=== PATIENT | female | born 1975 | race American Indian/Alaskan Native ===

== ENCOUNTER 2017-12-30 09:35 | Emergency (ER) | payer BC ==
[2017-12-30] MEDS ORDERED: MOTRIN PO ONE (10:04)
--- NOTE | 2017-12-30 10:06 | Emergency Department Report ---
Blank Doc - Documentation Documentation: This is a 42-year-old black female who presented with several complaints. Patient states for the last 2 days she has been having some right sided sharp chest discomfort. Patient states that hurts when she laughs when she breathes and also when she moves. Patient denies any cough or congestion. Patient also states that she has been having morning leg cramps. Patient has a history of DVT and this was also wrote for approximately 8 months was taken off. Lastly the patient is complaining of dysuria. Patient has a pressure-like sensation in the suprapubic region and pain at the end of her urinary stream. Patient denies any abnormal bleeding or discharge. Patient will have a d-dimer ordered as well as a chest x-ray. EKG is reviewed by me is within normal limits. Patient also has basic labs ordered as well as ultrasound of her bilateral legs.
--- NOTE | 2017-12-30 10:29 | Emergency Department Report ---
ED Chest Pain HPI - General Chief Complaint: Chest Pain Stated Complaint: CHEST PAIN/ADB PAIN Time Seen by Provider: 12/30/17 09:56 Source: patient Mode of arrival: Ambulatory Limitations: No Limitations - History of Present Illness Initial Comments: This is a 42-year-old black female who presented with several complaints. Patient states for the last 2 days she has been having some right sided sharp chest discomfort. Patient states that hurts when she laughs when she breathes and also when she moves. Patient denies any cough or congestion. Patient also states that she has been having leg cramps. Patient has a history of DVT and this was also wrote for approximately 8 months was taken off. Lastly the patient is complaining of dysuria. Patient has a pressure-like sensation in the suprapubic region and pain at the end of her urinary stream. Patient denies any abnormal bleeding or discharge. Pain 9 and 10 and crampy legs. Suprapubic pressure right chest pain that sharp. All pain is 8 out of 10. Chest pain worse with eating, laughing and walking. Better with rest. Leg pain on walk-in better with rest and pelvic pressure is intermittent and she reports burning pain and pelvic pressure on urination. She took over-the- counter pain medication but it did not help her patient. Denies any back pain. Denies any nausea vomiting or diarrhea. Denies any vaginal bleeding or discharge. MD Complaint: chest pain, other (multiple other complaints) Onset/Timin -: days(s) Onset: during exertion Pain Location: right chest Pain Radiation: none Severity: severe Severity scale (0 -10): 8 Quality: sharp, pressure, other (cramping.) Consistency: intermittent Improves With: rest Worsens With: exertion Context: other (none) re: denies: nausea, vomting, diaphoresis, dyspnea, sense of impending doom Other Symptoms: denies: cough, fever, syncope, rash, acid taste in mouth, leg swelling, palpitations, burping Treatments Prior to Arrival: none Aspirin use within the Past 7 Days: (0) No - Related Data On Oral Contraceptives: No Previous Rx's Medication Instructions Recorded Last Taken Type Naproxen 500 mg PO Q12H 5 Days #10 tablet 12/30/17 Unknown Rx Ondansetron [Zofran Odt] 4 mg PO Q6H PRN #20 tab.rapdis 12/30/17 Unknown Rx Sulfamethoxazole/Trimethoprim 1 each PO BID 7 Days #14 tablet 12/30/17 Unknown Rx [Bactrim DS TAB] Allergies Allergy/AdvReac Type Severity Reaction Status Date / Time acetaminophen [From Vicodin] Allergy Hives Verified 12/30/17 09:43 hydrocodone [From Vicodin] Allergy Hives Verified 12/30/17 09:43 Penicillins Allergy Hives Verified 12/30/17 09:43 Heart Score - HEART Score History: Slightly suspicious EKG: Normal Age: < 45 Risk factors: 1-2 risk factors Troponin: < normal limit HEART Score: 1 - Critical Actions Critical Actions: 0-3 pts:0.9-1.7%risk of adverse cardiac event.Candidate for discharge ED Review of Systems ROS: Stated complaint: CHEST PAIN/ADB PAIN Other details as noted in HPI Constitutional: denies: chills, fever Eyes: denies: eye pain, eye discharge, vision change ENT: denies: ear pain, throat pain, congestion Respiratory: denies: cough, shortness of breath, SOB with exertion, SOB at rest , wheezing Cardiovascular: chest pain. denies: palpitations, dyspnea on exertion, orthopnea, edema, syncope, paroxysmal nocturnal dyspnea Gastrointestinal: abdominal pain. denies: nausea, vomiting, diarrhea, constipation, melena, hematochezia Genitourinary: dysuria. denies: urgency, frequency, hematuria, discharge Musculoskeletal: denies: back pain, joint swelling, arthralgia, myalgia Skin: denies: rash, lesions Neurological: denies: headache, weakness, numbness, paresthesias, confusion, abnormal gait, vertigo ED Past Medical Hx - Past Medical History Previous Medical History?: Yes Hx Hypertension: Yes - Surgical History Past Surgical History?: Yes Additional Surgical History: Hyst, bladder, ectopic - Family History Family history: hypertension - Social History Smoking Status: Never Smoker Substance Use Type: Alcohol - Medications Home Medications: Home Medications Medication Instructions Recorded Confirmed Last Taken Type Naproxen 500 mg PO Q12H 5 Days #10 tablet 12/30/17 Unknown Rx Ondansetron [Zofran Odt] 4 mg PO Q6H PRN #20 tab.rapdis 12/30/17 Unknown Rx Sulfamethoxazole/Trimethoprim 1 each PO BID 7 Days #14 tablet 12/30/17 Unknown Rx [Bactrim DS TAB] ED Physical Exam - General Limitations: No Limitations General appearance: alert, in no apparent distress - Head Head exam: Present: atraumatic, normocephalic, normal inspection - Eye Eye exam: Present: normal appearance, PERRL, EOMI Pupils: Present: normal accommodation - ENT ENT exam: Present: normal exam, normal orophraynx, mucous membranes moist, TM's normal bilaterally, normal external ear exam - Neck Neck exam: Present: normal inspection, full ROM. Absent: tenderness, lymphadenopathy - Respiratory Respiratory exam: Present: normal lung sounds bilaterally, chest wall tenderness (right). Absent: respiratory distress, wheezes, rales, rhonchi, stridor, accessory muscle use, decreased breath sounds, prolonged expiratory - Cardiovascular Cardiovascular Exam: Present: regular rate, normal rhythm, normal heart sounds. Absent: systolic murmur, diastolic murmur - GI/Abdominal GI/Abdominal exam: Present: soft, normal bowel sounds. Absent: distended, tenderness, guarding, rebound, rigid, organomegaly, mass - Extremities Exam Extremities exam: Present: normal inspection, full ROM, normal capillary refill , other (No cce. + 2 pulses in all extremities, no neurovascular compromise. Negative Homans sign). Absent: tenderness, pedal edema, joint swelling, calf tenderness - Back Exam Back exam: Present: normal inspection, full ROM, other (ambulates without any difficulties). Absent: tenderness, CVA tenderness (R), CVA tenderness (L), muscle spasm, paraspinal tenderness, vertebral tenderness, rash noted - Neurological Exam Neurological exam: Present: alert, oriented X3, normal gait, reflexes normal. Absent: motor sensory deficit - Psychiatric Psychiatric exam: Present: normal affect, normal mood - Skin Skin exam: Present: warm, dry, intact, normal color. Absent: rash ED Course Vital Signs 12/30/17 12/30/17 12/30/17 09:43 10:15 10:49 Temperature 98.4 F Pulse Rate 77 Respiratory 20 18 18 Rate Blood Pressure 131/80 Blood Pressure [Left] O2 Sat by Pulse 100 Oximetry 12/30/17 12/30/17 12/30/17 14:17 16:37 18:04 Temperature 98 F 98 F Pulse Rate 56 L 56 L Respiratory 18 17 17 Rate Blood Pressure Blood Pressure 117/66 117/66 [Left] O2 Sat by Pulse 98 98 Oximetry - Reevaluation(s) Reevaluation #1: 12/30/17 12:10 Patient received ibuprofen which helped her pain. This is ordered by Dr. Lorenza León. Pain is better. She is in no distress. Reevaluation #2: 12/30/17 15:11 Patient stable and in no acute distress received Toradol 30 mg IV for pain after returning from ultrasound and she received Pepcid 20 mg IV. She is stable and in no acute distress. Reevaluation #3: 12/30/17 17:18 Patient did not drink in orally without any distress. Her pain has resolved. She says she is feeling better. She was given results of her diagnostic and laboratory studies and she has a primary care physician that she says she will call to schedule an appointment with. I also informed her that I will refer her to seafood specialist for abdominal pain and to cardiology for atypical chest pain and she is in agreement. HECTOR score - Hector Score Age > 65: (0) No Aspirin use within the Past 7 Days: (0) No 3 or more CAD Risk Factors: (0) No 2 or more Angina events in past 24 hrs: (0) No Known CAD with more than 50% Stenosis: (0) No Elevated Cardiac Markers: (0) No ST Deviation Greater than 0.5mm: (0) No HECTOR Score: 0 ED Medical Decision Making - Lab Data Result diagrams: 12/30/17 10:09 12/30/17 10:09 Lab Results 12/30/17 12/30/17 12/30/17 Range/Units 10: 10:09 10:09 WBC 5.4 (4.5-11.0) K/mm3 RBC 4.95 (3.65-5.03) M/mm3 Hgb 13.9 (10.1-14.3) gm/dl Hct 41.1 (30.3-42.9) % MCV 83 (79-97) fl MCH 28 (28-32) pg MCHC 34 (30-34) % RDW 14.6 (13.2-15.2) % Plt Count 243 (140-440) K/mm3 Lymph % (Auto) 41.2 H (13.4-35.0) % [place] % (Auto) 7.3 (0.0-7.3) % Eos % (Auto) 2.2 (0.0-4.3) % Baso % (Auto) 1.3 (0.0-1.8) % Lymph # 2.2 (1.2-5.4) K/mm3 [place] # 0.4 (0.0-0.8) K/mm3 Eos # 0.1 (0.0-0.4) K/mm3 Baso # 0.1 (0.0-0.1) K/mm3 Seg Neutrophils % 48.0 (40.0-70.0) % Seg Neutrophils # 2.6 (1.8-7.7) K/mm3 D-Dimer 344.09 H (0-234) ng/mlDDU Sodium 140 (137-145) mmol/L Potassium 4.1 (3.6-5.0) mmol/L Chloride 102.1 (98-107) mmol/L Carbon Dioxide 25 (22-30) mmol/L Anion Gap 17 mmol/L BUN 9 (7-17) mg/dL Creatinine 0.7 (0.7-1.2) mg/dL Estimated GFR > 60 ml/min BUN/Creatinine Ratio 13 % Glucose 101 H (65-100) mg/dL Calcium 9.6 (8.4-10.2) mg/dL HCG, Qual (Negative) Urine Color (Yellow) Urine Turbidity (Clear) Urine pH (5.0-7.0) Ur Specific [place] (1.003-1.030) Urine Protein (Negative) mg/dL Urine Glucose (UA) (Negative) mg/dL Urine Ketones (Negative) mg/dL Urine Blood (Negative) Urine Nitrite (Negative) Urine Bilirubin (Negative) Urine Urobilinogen (<2.0) mg/dL Ur Leukocyte Esterase (Negative) Urine WBC (Auto) (0.0-6.0) /HPF Urine RBC (Auto) (0.0-6.0) /HPF U Epithel Cells (Auto) (0-13.0) /HPF Urine Mucus /HPF 12/30/17 12/30/17 Range/Units 10:09 Unknown WBC (4.5-11.0) K/mm3 RBC (3.65-5.03) M/mm3 Hgb (10.1-14.3) gm/dl Hct (30.3-42.9) % MCV (79-97) fl MCH (28-32) pg MCHC (30-34) % RDW (13.2-15.2) % Plt Count (140-440) K/mm3 Lymph % (Auto) (13.4-35.0) % [place] % (Auto) (0.0-7.3) % Eos % (Auto) (0.0-4.3) % Baso % (Auto) (0.0-1.8) % Lymph # (1.2-5.4) K/mm3 [place] # (0.0-0.8) K/mm3 Eos # (0.0-0.4) K/mm3 Baso # (0.0-0.1) K/mm3 Seg Neutrophils % (40.0-70.0) % Seg Neutrophils # (1.8-7.7) K/mm3 D-Dimer (0-234) ng/mlDDU Sodium (137-145) mmol/L Potassium (3.6-5.0) mmol/L Chloride (98-107) mmol/L Carbon Dioxide (22-30) mmol/L Anion Gap mmol/L BUN (7-17) mg/dL Creatinine (0.7-1.2) mg/dL Estimated GFR ml/min BUN/Creatinine Ratio % Glucose (65-100) mg/dL Calcium (8.4-10.2) mg/dL HCG, Qual Negative (Negative) Urine Color Yellow (Yellow) Urine Turbidity Cloudy (Clear) Urine pH 6.0 (5.0-7.0) Ur Specific [place] 1.023 (1.003-1.030) Urine Protein <15 mg/dl (Negative) mg/dL Urine Glucose (UA) Neg (Negative) mg/dL Urine Ketones Neg (Negative) mg/dL Urine Blood Neg (Negative) Urine Nitrite Neg (Negative) Urine Bilirubin Neg (Negative) Urine Urobilinogen < 2.0 (<2.0) mg/dL Ur Leukocyte Esterase Neg (Negative) Urine WBC (Auto) 1.0 (0.0-6.0) /HPF Urine RBC (Auto) 2.0 (0.0-6.0) /HPF U Epithel Cells (Auto) 32.0 H (0-13.0) /HPF Urine Mucus 3+ /HPF - EKG Data -: EKG Interpreted by [place] EKG shows normal: sinus rhythm Rate: normal - EKG Data Interpretation: no acute changes, normal EKG (60 bpm) - Radiology Data Radiology results: report reviewed Chest x-ray and CT chest dictated by radiologist report reviewed by myself. See detailed report below Bilateral lower extremity DVT negative for DVT or SVT. This is a preliminary report and final reports to be sent over by radiologist. TON CANAS Female : 1975 [facility]# [id number] 12/30/17 11:06 - Radiology Dept. Note by MOHIT BLISS Acct Num: [id number] : 1975 Patient Age: 42 VASCULAR LAB.PRELIMINARY REPORT. BLE VENOUS DUPLEX DONE. NO EVIDENCE OF DVT/SVT IN VESSELS VISUALIZED. Initialized on 12/30/17 11:06 - END OF NOTE CTA chest dictated by radiologist report reviewed by myself see report below. Patient: TON CANAS MR#: [id number] : 1975 Acct:[id number] Age/Sex: 42 / F ADM Date: 12/30/17 Loc: ED Attending Dr: Ordering Physician: ELIS LEÓN MD Date of Service: 12/30/17 Procedure(s): CT angio chest Accession Number(s): [id number] cc: ELIS LEÓN MD FINAL REPORT EXAM: CT ANGIO CHEST HISTORY: CP elevated ddimer COMPARISON: None. TECHNIQUE: Multiple contiguous images were obtained through administration of IV contrast. Reformatted sagittal and coronal images were available for review. Maximal intensity projection 3D images were provided for review. FINDINGS: Medical devices: None. Thyroid: Normal. Lymph nodes: No significant mediastinal, hilar, or axillary lymphadenopathy. Vasculature: Normal caliber of the pulmonary artery. No filling defect within the main pulmonary artery and its branches to suggest pulmonary embolism. Normal caliber of the thoracic aorta with a normal variant branching pattern of the aortic arch with a common origin between the right brachiocephalic and left common carotid artery. Heart: Normal heart size. Other mediastinal structures: Normal. Lung parenchyma: Lungs are clear. No suspicious nodule or mass. No focal consolidation. Airways: Patent. No bronchiectasis. Pleura: No pleural effusion or pneumothorax. Chest wall and spine: No suspicious osseous lesions. No acute fracture or dislocation. Upper Abdomen: Normal. IMPRESSION: No evidence of pulmonary embolism. No acute intrathoracic pathology. Transcribed By: RASHEEDA Dictated By: SANIA WEBB MD Electronically Authenticated By: SANIA WEBB MD Signed Date/Time: 12/30/171614 DD/ 14 TD/TT: 12/30/171614 Chest x-ray 2 view dictated per radiologist report reviewed by myself. Please see details below. Patient: TON CANAS MR#: [id number] : 1975 Acct:[id number] Age/Sex: 42 / F ADM Date: 12/30/17 Loc: ED Attending Dr: Ordering Physician: ELIS LEÓN MD Date of Service: 12/30/17 Procedure(s): XR chest routine 2V Accession Number(s): [id number] cc: ELIS LEÓN MD Fluoro Time In Minutes: ROUTINE CHEST, TWO VIEWS: HISTORY: Chest pain. This examination is just presented to me for interpretation. The trachea, heart, mediastinal contour, lung long and bony thorax are unremarkable. IMPRESSION: Unremarkable chest x-ray. Transcribed By: TTR Dictated By: JEANETTE JONES JR, MD Electronically Authenticated By: JEANETTE JONES JR, MD Signed Date/Time: 12/30/171522 DD/ 1523 TD/TT: 12/30/171522 - Medical Decision Making This is a 42-year-old patient here complaining of multiple issues. She is complaining of right-sided chest pain for 2 days and history of DVT. Worse with movement and laughing. She is also complaining of dysuria and suprapubic pressure. She is also complaining of leg cramps. Diagnostics: Chest x-ray dictated by radiologist and no acute cardiopulmonary findings. CT and she will shows a PE or acute cardiopulmonary processes. Bilateral lower extremity Doppler ultrasound shows no evidence of DVT or SVT. Laboratory: CBC and BMP stable, test negative, urinalysis negative for infection, d-dimer mildly elevated. EKG: Sinus rhythm at 60 bpm Assessment/plan 1: Atypical chest pain suspect costochondritis-chest x-ray and CT chest negative findings. She given Motrin 800 mg pain and then Toradol 30 mg IV for pain. Pain has resolved. EKG normal. Patient has score is at 1 so we will refer to outpatient cardiology and her HECTOR score 0. She is a low risk for ACS. 2: Bilateral lower extremity pain-8 is better after pain medication 3: Abdominal pain-Pepcid 20 mg IV. Pain has been resolved. Will sent home on naproxen 4: Interstitial cystitis- with dysuria-will sent home on Bactrim Patient educated on laboratory, EKG, ultrasound of lower extremity and chest x- ray along with CTA the chest. She voiced understanding. I educated her and her diagnosis, medication and treatment plan along with referral to specialists and she voiced understanding. Surgical stable condition and referred to warp drawer, IR[facility], primary care physician and seafood specialist for management of multiple medical problems. She understands that she needs to follow up as instructed. Discharged home in stable condition .vital signs are stable she is afebrile and her pain is much better. No nausea. Given prescription for Bactrim, naproxen and Zofran. - Differential Diagnosis PE, DVT, PNA, ACS, URI, Pyelo vs UTI, costochondritis, low k+, IC Critical care attestation.: If time is entered above; I have spent that time in minutes in the direct care of this critically ill patient, excluding procedure time. ED Disposition Clinical Impression: Dysuria, Costochondritis, acute, Atypical chest pain, Bilateral leg cramps, Cystitis, interstitial Abdominal pain Qualifiers: Abdominal location: lower abdomen, unspecified Qualified Code(s): R10.30 - Lower abdominal pain, unspecified Disposition: DC- TO HOME OR SELFCARE Is pt being admited?: No Does the pt Need Aspirin: No Condition: Stable Instructions: Chest Pain (ED), Costochondritis (ED), Chronic Pelvic Pain in Women (ED), Dysuria (ED), Abdominal Pain (ED) Additional Instructions: Follow-up with your primary care physician as discussed in 2 days. If your condition worsens, please return to the emergency room. See referral to cardiology to follow-up with in 2 days for atypical chest pain See referral to gastroenterology for follow-up in 2 days for abdominal pain. Follow-up for your IRON [facility]ER for interstitial cystitis evaluation in 4 days Take bactrim ds for interstitial cystitis Take naproxen for pelvic cramping, cramping to legs and chest wall pain. Please ensure that you take this medication with food is sticking caused irritation T his stomach lining and. Please increase her fluid intake Prescriptions: Naproxen 500 mg PO Q12H 5 Days #10 tablet Ondansetron [Zofran Odt] 4 mg PO Q6H PRN #20 tab.rapdis PRN Reason: Nausea And Vomiting Sulfamethoxazole/Trimethoprim [Bactrim DS TAB] 1 each PO BID 7 Days #14 tablet Referrals: PRIMARY [facility] [Primary Care Provider] - 01/01/18 JAY JAY ALVAREZ MD [Staff Physician] - 01/01/18 [facility] [Provider Group] - 01/01/18 [facility] [Provider [facility]] - 01/01/18 Forms: Work/School Release Form(ED)
[2017-12-30 10:33] LABS: Basophils # (Auto) 0.1 K/mm3 (0.0-0.1); Basophils % (Auto) 1.3 % (0.0-1.8); Eosinophils # (Auto) 0.1 K/mm3 (0.0-0.4); Eosinophils % (Auto) 2.2 % (0.0-4.3); Hematocrit 41.1 % (30.3-42.9); Hemoglobin 13.9 gm/dl (10.1-14.3); Lymphocytes # (Auto) 2.2 K/mm3 (1.2-5.4); Lymphocytes % (Auto) 41.2 % (13.4-35.0); Mean Corpuscular HGB Conc 34 % (30-34); Mean Corpuscular Hemoglobin 28 pg (28-32); Mean Corpuscular Volume 83 fl (79-97); Monocytes # (Auto) 0.4 K/mm3 (0.0-0.8); Monocytes % (Auto) 7.3 % (0.0-7.3); Platelet Count 243 K/mm3 (140-440); Red Blood Count 4.95 M/mm3 (3.65-5.03); Red Cell Distribution Width 14.6 % (13.2-15.2)
[2017-12-30 10:46] LABS: BUN/Creatinine Ratio 13; Blood Urea Nitrogen 9 mg/dL (7-17); Calcium 9.6 mg/dL (8.4-10.2); Hemolysis Index 22
[2017-12-30 11:20] LABS: Bilirubin,Urine NEG (Negative); Blood,Urine NEG (Negative); Color,Urine Yellow (Yellow); Mucus,Urine 3+ /HPF; Protein,Urine <15 mg/dL mg/dL (Negative); Urobilinogen,Urine < 2.0 mg/dL (<2.0)
[2017-12-30] MEDS ORDERED: PEPCID IV ONE (13:36)
[2017-12-30] MEDS ORDERED: TORADOL IV ONE (13:36)
--- NOTE | 2017-12-30 15:24 | XRay Report ---
ROUTINE CHEST, TWO VIEWS: HISTORY: Chest pain. This examination is just presented to me for interpretation. The trachea, heart, mediastinal contour, lung long and bony thorax are unremarkable. IMPRESSION: Unremarkable chest x-ray.
--- NOTE | 2017-12-30 16:16 | Cat Scan Report ---
FINAL REPORT EXAM: CT ANGIO CHEST HISTORY: CP elevated ddimer COMPARISON: None. TECHNIQUE: Multiple contiguous images were obtained through administration of IV contrast. Reformatted sagittal and coronal images were available for review. Maximal intensity projection 3D images were provided for review. FINDINGS: Medical devices: None. Thyroid: Normal. Lymph nodes: No significant mediastinal, hilar, or axillary lymphadenopathy. Vasculature: Normal caliber of the pulmonary artery. No filling defect within the main pulmonary artery and its branches to suggest pulmonary embolism. Normal caliber of the thoracic aorta with a normal variant branching pattern of the aortic arch with a common origin between the right brachiocephalic and left common carotid artery. Heart: Normal heart size. Other mediastinal structures: Normal. Lung parenchyma: Lungs are clear. No suspicious nodule or mass. No focal consolidation. Airways: Patent. No bronchiectasis. Pleura: No pleural effusion or pneumothorax. Chest wall and spine: No suspicious osseous lesions. No acute fracture or dislocation. Upper Abdomen: Normal. IMPRESSION: No evidence of pulmonary embolism. No acute intrathoracic pathology.
[2017-12-30 16:38] VITALS: BP 117/66
--- NOTE | 2017-12-31 17:08 | Vascular Lab Report ---
LOWER EXTREMITY VENOUS DUPLEX: REASON FOR EXAM: Deep venous thrombosis. COMMENTS ON THE RIGHT: All veins visualized are freely compressible without evidence of internal echogenicity. Flow is spontaneous and phasic throughout. COMMENTS ON THE LEFT: All veins visualized are freely compressible without evidence of internal echogenicity. Flow is spontaneous and phasic throughout. IMPRESSION: No evidence of acute or chronic deep venous thrombosis in either lower extremity.
== END 2017-12-30 18:04 | disposition home or self-care (01) ==
LOC: ED 09:35
DX: M94.0 Chondrocostal junction syndrome [Tietze] (principal); M79.605 Pain in left leg; M79.604 Pain in right leg; N30.90 Cystitis, unspecified without hematuria; I10 Essential (primary) hypertension
CPT/HCPCS: 36415; 71046; 71275; 80048; 81001; 84484; 84703; 85025; 85379; 93005; 93010; 93970; 96374; 96375; 99285; J1885; Q9967